=== PATIENT | female | born 1995 | race American Indian/Alaskan Native ===

== ENCOUNTER 2016-12-16 17:57 | Emergency (ER) | payer MEDICAID ==
[2016-12-16 18:28] VITALS: BP 180/98
[2016-12-16] MEDS ORDERED: HYDROmorphone 1 MG/ML Syringe IM ONE (18:34)
--- NOTE | 2016-12-16 18:50 | EDM.PDOC ---
ED HPI GENERAL MEDICAL PROBLEM - General Chief Complaint: Lower Extremity Injury/Pain Stated Complaint: HURT LT FOOT Time Seen by Provider: 12/16/16 18:15 Source of Information: Reports: Patient, RN Notes Reviewed History Limitations: Reports: No Limitations - History of Present Illness INITIAL COMMENTS - FREE TEXT/NARRATIVE: 21-year-old female presents emergency department day complaint of left foot pain , she injured herself last night when she missed a step and twisting her left ankle and fell to the ground she's having difficulty bearing weight does have swelling and bruising appreciated on the left ankle - Related Data Allergies Allergy/AdvReac Type Severity Reaction Status Date / Time No Known Allergies Allergy Verified 06/16/15 19:12 Home Meds: Home Meds metFORMIN [Glucophage] 500 mg PO DAILY 06/16/15 [History] Past Medical History 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 History: Reports: Fracture Endocrine/Metabolic History: Reports: Diabetes, Type II, Obesity/BMI 30+ - Past Surgical History Female Surgical History: Reports: Section 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 Surgical History: Reports: Other (See Below), ORIF Social & Family History - Tobacco Use Smoking Status *Q: Current Every Day Smoker Years of Tobacco use: 2 Packs/Tins Daily: 0.5 Second Hand Smoke Exposure: No - Recreational Drug Use Recreational Drug Use: No Review of Systems - Review of Systems Review Of Systems: See Below GI/Abdominal: Reports: No Symptoms 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: Reports: Joint Pain (Left ankle) Skin: Reports: No Symptoms Neurological: Reports: No Symptoms ED EXAM, GENERAL - Physical Exam Exam: See Below Free Text/Narrative:: Examination of left ankle I do appreciate some edema around the ankle there is some ecchymosis along the lateral aspect around the malleolus pedal pulses 2+ she will not tolerate any movement of the ankle she can bear weight but has difficulty exquisitely tender over the lateral malleolus Exam Limited By: No Limitations General Appearance: Alert, WD/WN, No Apparent Distress Course - Vital Signs Last Recorded V/S: Last Vital Signs Temp 97.2 F 12/16/16 18:25 Pulse 67 12/16/16 18:25 Resp 14 12/16/16 18:25 BP 180/98 H 12/16/16 18:25 Pulse Ox 98 12/16/16 18:25 - Orders/Labs/Meds Orders: Active Orders 24 hr Category Date Time Status Ankle Min 3V Lt [CR] Stat Exams 12/16/16 18:35 Taken DME for Discharge [COMM] Per Unit Routine Oth 12/16/16 19:07 Ordered Meds: Medications Discontinued Medications Generic Name Dose Route Start Last Admin Trade Name Cecilia PRN Reason Stop Dose Admin Hydromorphone HCl 1 mg 12/16/16 18:34 12/16/16 18:54 Dilaudid IM 12/16/16 18:35 1 mg ONETIME ONE Administration Departure - Departure Time of Disposition: 19:10 Disposition: Home, Self-Care 01 Condition: Good Clinical Impression: Left ankle sprain Qualifiers: Encounter type: initial encounter Involved ligament of ankle: other ligament Qualified Code(s): S93.492A - Sprain of other ligament of left ankle, initial encounter - Discharge Information Forms: ED Department Discharge Additional Instructions: Continue to use crutches in the Cam Walker boot until reevaluated by orthopedics , use ibuprofen for baseline pain control and hydrocodone for breakthrough pain - My Orders Last 24 Hours: My Active Orders 12/16/16 18:35 Ankle Min 3V Lt [CR] Stat 12/16/16 19:07 DME for Discharge [COMM] Per Unit Routine - Assessment/Plan Last 24 Hours: My Active Orders 12/16/16 18:35 Ankle Min 3V Lt [CR] Stat 12/16/16 19:07 DME for Discharge [COMM] Per Unit Routine Plan: Assessment Acuity = acute Site and laterality = left ankle sprain Etiology = secondary to twisting injury Manifestations = pain Location of injury = Home Lab values = ankle x-ray I did review films myself I cannot appreciate any acute process, the official read from radiology is pending Plan Counseled her on x-ray films I did not appreciate a fracture we'll contact her if a fracture is appreciated by radiology, she is placed in a cam walker boot and crutches to use ibuprofen for baseline pain control hydrocodone for breakthrough pain she is going to follow-up with her orthopedics in 3-5 days for reevaluation Patient was in agreement with the plan all questions were answered, they were instructed to return to the emergency department or call for worsening symptoms. This note was dictated using [employer] voice recognition software please call with any questions.
--- NOTE | 2016-12-17 10:08 | CR ---
Soft tissue swelling. No fracture.
== END 2016-12-16 19:39 | disposition home or self-care (01) ==
LOC: JP.ED 17:57
DX: S93.492A Sprain of other ligament of left ankle, initial encounter (principal); E11.9 Type 2 diabetes mellitus without complications; F17.210 Nicotine dependence, cigarettes, uncomplicated; E66.9 Obesity, unspecified; Z68.37 Body mass index [BMI] 37.0-37.9, adult; Z79.84 Long term (current) use of oral hypoglycemic drugs; Z98.890 Other specified postprocedural states; W01.0XXA Fall on same level from slipping, tripping and stumbling without subsequent striking against object, initial encounter
CPT/HCPCS: 73610; 96372; 99284; J1170

== ENCOUNTER 2017-05-09 08:19 | Emergency (ER) | payer SELFPAY ==
[2017-05-09 08:33] VITALS: BP 105/51
--- NOTE | 2017-05-09 08:51 | EDM.PDOC ---
ED HPI GENERAL MEDICAL PROBLEM - General Chief Complaint: ENT Problem Stated Complaint: TOOTHACHE Time Seen by Provider: 05/09/17 08:40 Source of Information: Reports: Patient, Police, RN History Limitations: Reports: No Limitations - History of Present Illness INITIAL COMMENTS - FREE TEXT/NARRATIVE: 21 yo female with 3 days of dental pain not relieved with ibuprofen. No facial swelling or fever. Has not contacted her primary. Has no dentist. Plans on going to the walk in clinic tomorrow at [facility]. Onset Date: 05/06/17 Duration: Day(s):, Constant Location: Reports: Face Quality: Reports: Ache Severity: Moderate Improves with: Reports: None Worsens with: Reports: Other (? 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 Tooth/Teeth Pain Score (Numeric/FACES): 9 - Related Data Allergies Allergy/AdvReac Type Severity Reaction Status Date / Time No Known Allergies Allergy Verified 05/09/17 08:33 Home Meds: Home Meds metFORMIN [Glucophage] 500 mg PO DAILY 06/16/15 [History] Hydrocodone/Acetaminophen [[place] 5-325] 1 - 2 tab PO Q6H PRN #10 tablet [Rx] Penicillin V Potassium [IJP: Penicillin V Potassium] 500 mg PO .EVERY 8 HOURS # 30 tab 05/09/17 [Rx] Past Medical History HEENT History: Reports: 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: 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 History: Reports: Fracture Endocrine/Metabolic History: Reports: Diabetes, Type II, Obesity/BMI 30+ - Past Surgical History Female Surgical History: Reports: Section 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 Surgical History: Reports: ORIF Social & Family History - Tobacco Use Smoking Status *Q: Current Some Day Smoker Years of Tobacco use: 3 Packs/Tins Daily: 0.2 Used Tobacco, but Quit: No Second Hand Smoke Exposure: Yes - Caffeine Use Caffeine Use: Reports: Coffee, Soda - Alcohol Use Days Per Week of Alcohol Use: 0 - Recreational Drug Use Recreational Drug Use: No ED ROS ENT - Review of Systems Review Of Systems: See Below Constitutional: Reports: No Symptoms HEENT: Reports: Dental Pain Respiratory: Reports: No Symptoms Cardiovascular: Reports: No Symptoms 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: Reports: No Symptoms Skin: Reports: No Symptoms Neurological: Reports: No Symptoms ED EXAM, ENT - Physical Exam Exam: See Below Exam Limited By: No Limitations General Appearance: Alert, WD/WN, No Apparent Distress Eye Exam: Bilateral Eye: Normal Inspection Ears: Normal External Exam, Normal Canal, Hearing Grossly Normal Nose: Normal Inspection, Normal Mucousa, No Blood Mouth/Throat: Normal Lips, Normal Oropharynx, Dental Tenderness (deep cavity L upper premolar, tender with percussion.) Head: Atraumatic, Normocephalic. No: Facial Swelling Neck: Normal Inspection, Supple Skin: Warm, Dry, Intact, Normal Color, No Rash Lymphatic: No Adenopathy Course - Vital Signs Last Recorded V/S: Last Vital Signs Temp 35.6 C 05/09/17 08:38 Pulse 72 05/09/17 08:38 Resp 18 05/09/17 08:38 BP 105/51 L 05/09/17 08:38 Pulse Ox 99 05/09/17 08:38 Departure - Departure Time of Disposition: 08:50 Disposition: Home, Self-Care 01 Condition: Good Clinical Impression: Dental caries extending into dentin - Discharge Information Prescriptions: Hydrocodone/Acetaminophen [[place] 5-325] 1 - 2 tab PO Q6H PRN #10 tablet PRN Reason: Pain Penicillin V Potassium [IJP: Penicillin V Potassium] 500 mg PO .EVERY 8 HOURS # 30 tab Referrals: PCP,None [Primary Care Provider] - Forms: ED Department Discharge Additional Instructions: Use prescriptions as directed. Continue your ibuprofen 800 mg every 8 hrs with food. See a dentist rio, if you can't get in right away, then see your family doctor.
== END 2017-05-09 08:57 | disposition home or self-care (01) ==
LOC: JP.ED 08:19
DX: K02.9 Dental caries, unspecified (principal); E11.9 Type 2 diabetes mellitus without complications; E66.9 Obesity, unspecified; Z79.84 Long term (current) use of oral hypoglycemic drugs
CPT/HCPCS: 99283

== ENCOUNTER 2019-03-16 08:00 | Day surgery (SDC) | payer MEDICAID ==
[2019-03-16] MEDS ORDERED: Acetaminophen 500 MG Tab PO ONE (08:03)
[2019-03-16] MEDS ORDERED: Bupivacaine 0.5%/EPINEPHrine 1:200,000 50 ML MDV ONE (08:15)
[2019-03-16] MEDS: Dextrose 5%-Lactated Ringers 1,000 ML IV SCH ×2 (09:13→13:09)
[2019-03-16] MEDS ORDERED: cefOXitin 2 GM in Sodium Chloride 0.9% 50 ML IV ONE (10:00)
[2019-03-16] MEDS ORDERED: fentaNYL 250 MCG/5 ML SDV ONE ×2 (10:02→10:03)
[2019-03-16] MEDS ORDERED: Succinylcholine 200 MG/10 ML MDV ONE (10:03)
[2019-03-16] MEDS ORDERED: Glycopyrrolate 0.2 MG/ML 5 ML MDV ONE (10:03)
[2019-03-16] MEDS ORDERED: Ondansetron 4 MG/2 ML SDV ONE (10:03)
[2019-03-16] MEDS ORDERED: Propofol 200 MG/20 ML SDV ONE (10:03)
[2019-03-16] MEDS ORDERED: Neostigmine Methylsulfate 1 MG/ML 5 ML Syringe ONE (10:03)
[2019-03-16] MEDS ORDERED: Dexamethasone 4 MG/ML SDV ONE (10:03)
[2019-03-16] MEDS ORDERED: Rocuronium 50 MG/5 ML Vial ONE (10:03)
[2019-03-16] MEDS ORDERED: Ketamine 500 MG/5 ML MDV IV SCH (10:30)
[2019-03-16] MEDS ORDERED: hydrOXYzine HCl 100 MG/2 ML SDV IM ONE (10:50)
[2019-03-16] MEDS ORDERED: fentaNYL 100 MCG/2 ML SDV ONE (10:51)
[2019-03-16] MEDS: fentaNYL 100 MCG/2 ML SDV IVPUSH ONE ×2 (10:52→13:12)
[2019-03-16] MEDS ORDERED: Insulin Lispro 100 Unit/ML 3 ML KwikPen SUBCUT ONE (11:30)
[2019-03-16] MEDS ORDERED: Ondansetron 4 MG/2 ML SDV IVPUSH PRN (12:37)
[2019-03-16] MEDS ORDERED: HYDROmorphone 1 MG/ML Syringe IV PRN (12:37)
[2019-03-16] MEDS ORDERED: HYDROmorphone 0.5 MG/0.5 ML Syringe IVPUSH PRN (12:37)
[2019-03-16] MEDS ORDERED: 50% Dextrose in Water 50 ML Syringe IVPUSH PRN (12:41)
[2019-03-16] MEDS ORDERED: Glucagon,Human Recombinant 1 MG Vial IM PRN (12:41)
[2019-03-16] MEDS ORDERED: Glucose Gel 15 GM in 37.5 GM Tube PO PRN (12:41)
[2019-03-16] MEDS: Gabapentin 300 MG Cap PO SCH ×2 (13:14→20:12)
[2019-03-16] MEDS: Magnesium Sulfate/Water 2 GM in Premix Bag 1 BAG IV SCH ×2 (13:16→20:10)
[2019-03-16] MEDS ORDERED: Lactated Ringers 1,000 ML IV SCH (14:00)
[2019-03-16] MEDS ORDERED: Pantoprazole 40 MG Vial IVPUSH SCH (14:00)
[2019-03-16] MEDS: cefOXitin 2 GM in Sodium Chloride 0.9% 50 ML IV SCH ×2 (16:45→22:06)
[2019-03-16] MEDS: metFORMIN 500 MG Tab PO SCH (17:24)
[2019-03-16] MEDS: Acetaminophen/HYDROcodone 325-5 MG Tab PO PRN (20:08)
[2019-03-16] MEDS: Insulin Glargine,Human Rec. Analog 100 Units/ML 3 ML Pen SUBCUT SCH (22:02)
[2019-03-16] MEDS: Insulin Lispro 100 Unit/ML 3 ML KwikPen SUBCUT PRN (22:03)
[2019-03-17] MEDS: Acetaminophen/HYDROcodone 325-5 MG Tab PO PRN ×2 (00:13→04:06)
[2019-03-17] MEDS: Magnesium Sulfate/Water 2 GM in Premix Bag 1 BAG IV SCH ×2 (01:18→08:03)
[2019-03-17] MEDS: cefOXitin 2 GM in Sodium Chloride 0.9% 50 ML IV SCH (04:06)
[2019-03-17 07:04] VITALS: BP 151/80; PULSE 93
[2019-03-17] MEDS ORDERED: glipiZIDE 5 MG Tab PO SCH (07:30)
[2019-03-17] MEDS ORDERED: Acetaminophen/HYDROcodone 325-5 MG Tab PO PRN (07:35)
[2019-03-17] MEDS: metFORMIN 500 MG Tab PO SCH (07:51)
[2019-03-17] MEDS: Gabapentin 300 MG Cap PO SCH (08:03)
[2019-03-17] MEDS: Insulin Glargine,Human Rec. Analog 100 Units/ML 3 ML Pen SUBCUT SCH (08:05)
[2019-03-17] MEDS: Insulin Lispro 100 Unit/ML 3 ML KwikPen SUBCUT PRN (08:06)
[2019-03-17] MEDS ORDERED: FLU Vacc QS2019-20(6MOS+)/PF 60 MCG/0.5 ML SYRINGE IM ONE (09:00)
--- NOTE | 2019-03-19 09:56 | DISCH ---
FINAL DIAGNOSES: 1. Chronic cholecystitis and cholelithiasis. 2. Marked hepatomegaly with grossly infiltrated fatty liver. 3. Atypical pigmented lesion of the right lower quadrant abdominal wall. 4. Morbid obesity. 5. Poorly-controlled type 2 diabetes mellitus. OPERATIVE PROCEDURES: 1. Done on 03/16/2019, diagnostic laparoscopy with: a. Cholecystectomy. b. Liver biopsy. c. Excision of medina hepatis lymph node. 2. Excision of pigmented skin lesion, right lower quadrant abdominal wall. SUMMARY: This is a 23-year-old, presenting with symptomatic cholelithiasis. On preoperative ultrasound, she was found to have a significantly fatty infiltrated liver and to have quite poorly controlled type 2 diabetes mellitus. Over the weekend, we did make some adjustments in terms of her diabetic medications, adding some Lantus and blood sugar preoperatively was down to 188 where it had been in the 400 range late last week. The patient underwent a laparoscopic cholecystectomy along with liver biopsy. Liver was grossly quite large and fatty infiltrated. She had a large [place] hepatis lymph node, which was also removed. She was noted to have a pigmented lesion in the right lower quadrant abdominal wall which was excised to rule out this being a melanoma. Pathology on that is pending. Postoperatively, the patient has done well. She will be discharged home on her usual medications plus [place] 5/325 one to two tablets q.6h. p.r.n. pain, #40. We will have Delphine Mishra see the patient regarding diabetic education and she is going to follow up with Alisa Jacob in [facility] next 03/23/2019. We will also schedule her for a bariatric surgery consult on 04/09/2019, as this is a case that will almost certainly do much better by either gastric bypass or duodenal switch, which would control her diabetes and prevent severe long-term complications in relatively early age. It is of note her BMI preoperatively was 41.9.
--- NOTE | 2019-03-27 11:05 | OR ---
DATE OF PROCEDURE: 03/16/2019 SURGEON: Jake Nunez MD PREOPERATIVE DIAGNOSIS: Chronic cholecystitis and cholelithiasis. POSTOPERATIVE DIAGNOSES: 1. Chronic cholecystitis and cholelithiasis. 2. Marked hepatomegaly. 3. Enlarged medina hepatis lymph node. 4. Atypical pigmented skin lesion, right lower quadrant abdominal wall. OPERATIVE PROCEDURES: 1. Diagnostic laparoscopy with: a. Cholecystectomy (88890). b. Theo-Cut needle liver biopsy (58187). c. Excision of medina hepatis lymph node ([id number]). 2. Excision of pigmented skin lesion, right lower quadrant abdominal wall with layered closure (02093, [id number]). ANESTHESIA: General. LIBRARY ASSISTANT: Alisa Jacob PA-C. INDICATION FOR PROCEDURE: A 23-year-old female presenting with episodes of recurrent biliary colic. Workup revealed cholelithiasis and the clinical presentation consistent with recurrent biliary colic. Plan was to proceed with a laparoscopic cholecystectomy. She was also noted to have a quite fatty infiltrated liver, patient being morbidly obese and type 2 diabetic, so we would expect them to likely obtain a liver biopsy as well. Potential risks of the procedure including bleeding, infection, injury to underlying viscera, problems with stones migrating into common bile duct, as well as the possibility of incomplete relief of symptoms were gone over, and the patient wishes to proceed. DETAILS OF PROCEDURE: The patient was taken to the operating room and placed in a supine position. After general endotracheal anesthesia was induced, the abdomen was prepped and draped. Transverse epigastric incision was made and carried down through the skin and subcutaneous tissue and the peritoneal cavity entered under direct vision with an Optiview trocar, inflated to 15 mmHg pressure with CO2. Laparoscope was reinserted. No underlying trocar insertion site injuries were seen. Following this, a 12 mm subumbilical trocar was placed along with 5 mm right abdominal trocar and the upper abdomen examined. As expected, the patient had a thick-walled and somewhat edematous-appearing gallbladder and there were some omental adhesions with it. In addition to this, the patient had a quite marked hepatomegaly with liver grossly fatty infiltrated consistent with her obesity and type 2 diabetes mellitus. As one dissected, there was also roughly a pea-sized medina hepatis lymph node which stood out somewhat as being abnormal. Initially, this was excised using Harmonic scalpel and following which, the Theo-Cut needle liver biopsy was obtained from right lobe of liver. Minimal bleeding from the biopsy sites was controlled with electrocautery. The gallbladder was retracted anteriorly and laterally after the omental adhesions had been taken down. Dissection continued then around the gallbladder neck and cystic duct junction. Once that area was well delineated, 3 clips were placed proximally and 1 distally, and the gallbladder neck and cystic duct junction divided. The cystic area at the same time had been identified and also clipped 3 times proximally and then divided with Harmonic scalpel. The gallbladder was then dissected off the gallbladder bed using Harmonic scalpel and was delivered through the epigastric trocar site. It contained 1 stone roughly the size of a pea and then multiple tinier stones as well. The area of dissection was then inspected. No bleeding or bile leaks were seen and it was felt that a drain was not necessary. The trocars were removed and peritoneal cavity deflated, and the fascia at 12 mm site was closed with 0 Vicryl stitch, and the skin with 4- 0 Vicryl skin stitch. The patient was also noted to have a quite dark pigmented lesion in the skin of the right lower quadrant anterior abdominal wall. This was somewhat suspicious for a melanoma given its appearance. Given this, a transverse elliptical incision was made around the lesion with lesion margin length being 1.2 cm and this was then closed with some 4-0 Vicryl stitch deep and some 4-0 Vicryl skin stitch as well. The incision length was 1.8 cm. Dressing was applied. The patient was taken to the recovery room in satisfactory condition. Physician embalmer assistant, Alisa Jacob, played an essential role in assisting in this case, helping to position the patient, retract structures as needed, as well as suturing and cutting sutures when indicated. Her presence improved patient safety and decreased the operative time. Jake Nunez MD /[id number]
== END 2019-03-17 09:45 | disposition home or self-care (01) ==
LOC: JP.MS 08:00 → JP.SDS 08:00
PROVIDERS: ATTEND Surgery
DX: K80.10 Calculus of gallbladder with chronic cholecystitis without obstruction (principal); Q82.5 Congenital non-neoplastic nevus; R16.0 Hepatomegaly, not elsewhere classified; K75.81 Nonalcoholic steatohepatitis (NASH); K74.0 Hepatic fibrosis; D36.0 Benign neoplasm of lymph nodes; E66.01 Morbid (severe) obesity due to excess calories; E11.65 Type 2 diabetes mellitus with hyperglycemia; E11.40 Type 2 diabetes mellitus with diabetic neuropathy, unspecified; F17.210 Nicotine dependence, cigarettes, uncomplicated; Z68.41 Body mass index [BMI] 40.0-44.9, adult; Z88.6 Allergy status to analgesic agent
CPT/HCPCS: 11406; 12032; 36415; 47001; 47562; 49321; 80053; 81025; 82247; 82962; 84075; 85025; 88304; 88305; 88307; 88313; 90471; 90686; A9270; C9113; J0171; J0330; J0694; J1100; J1170; J1815; J2405; J2704; J2710; J2795; J3010; J3410; J3475; J3490; J7042; J7050; J7120; G0008

== ENCOUNTER 2019-04-12 16:01 | Emergency (ER) | payer MEDICAID ==
[2019-04-12 16:19] VITALS: BP 141/67; PULSE 90
[2019-04-12] MEDS ORDERED: Cephalexin 250 MG Cap PO ONE (16:59)
[2019-04-12] MEDS ORDERED: Acetaminophen/HYDROcodone 325-5 MG Tab PO ONE (17:00)
--- NOTE | 2019-04-12 17:06 | EDM.PDOC ---
ED HPI GENERAL MEDICAL PROBLEM - General Chief Complaint: Skin Complaint Stated Complaint: BOIL INFECTION Time Seen by Provider: 04/12/19 17:00 Source of Information: Reports: Patient, Old Records, RN History Limitations: Reports: No Limitations - History of Present Illness INITIAL COMMENTS - FREE TEXT/NARRATIVE: 23 yo female presents with pain and redness to the R lateral hip. Sx's getting worse over about 4 days. Low grade temp today to just over 100F. Onset: Gradual Onset Date: 04/08/19 Duration: Day(s): (4), Getting Worse Location: Reports: Pelvis (R lateral) Quality: Reports: Ache Severity: Moderate Improves with: Reports: None Worsens with: Reports: Other (time) Context: Reports: Other (has had boils before) Associated Symptoms: Reports: Fever/Chills (low grade) Treatments CAB STARTER: Reports: Acetaminophen Right Buttock Pain Score (Numeric/FACES): 10 - Related Data Allergies Allergy/AdvReac Type Severity Reaction Status Date / Time aspirin Allergy Hives Verified 03/13/19 11:28 Home Meds: Home Meds metFORMIN [Glucophage] 500 mg PO BIDMEALS 06/16/15 [History] Gabapentin [Neurontin] 600 mg PO TID 03/13/19 [History] Insulin Glarg,Human.Rec.Analog [Lantus Solostar] 10 unit SQ BID 03/13/19 [ History] glipiZIDE [Glucotrol XL] 10 mg PO ACBREAKFAST 03/13/19 [History] Past Medical History HEENT History: Reports: Impaired Vision Other HEENT History: wears glasses Gastrointestinal History: Reports: GERD Genitourinary History: Reports: None 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: 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 History: Reports: Fracture Endocrine/Metabolic History: Reports: Diabetes, Type II, Obesity/BMI 30+ - Past Surgical History HEENT Surgical History: Reports: None GI Surgical History: Reports: None Female Surgical History: Reports: Section Endocrine Surgical History: Reports: None 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 Surgical History: Reports: ORIF Dermatological Surgical History: Reports: None Social & Family History - Family History Endocrine/Metabolic: Reports: Diabetes, type II - Tobacco Use Smoking Status *Q: Current Every Day Smoker Years of Tobacco use: 6 Packs/Tins Daily: 0.5 - Caffeine Use Caffeine Use: Reports: Coffee, Soda, Tea - Recreational Drug Use Recreational Drug Use: No ED ROS GENERAL - Review of Systems Review Of Systems: Comprehensive ROS is negative, except as noted in HPI. Constitutional: Reports: Fever (100F) HEENT: Reports: No Symptoms Skin: Reports: Erythema (R lateral hip area, getting worse.) Neurological: Reports: No Symptoms ED EXAM, SKIN/RASH Exam: See Below Exam Limited By: No Limitations General Appearance: Alert, WD/WN, No Apparent Distress, Obese Skin: Warm, Dry, Intact, No Rash, Erythema (in an area about 10 cm in diameter with central firmness like an early abcsess. ), Increased Warmth Location, Skin: Other (R lateral hip) Characteristics: Erythematous Associated features: Warmth, Tenderness Course - Vital Signs Last Recorded V/S: Last Vital Signs Temp 36.6 C 04/12/19 16:24 Pulse 90 04/12/19 16:24 Resp 20 04/12/19 16:24 BP 141/67 H 04/12/19 16:24 Pulse Ox 95 04/12/19 16:24 - Orders/Labs/Meds Orders: Active Orders 24 hr Category Date Time Status Acetaminophen/HYDROcodone [[place] 325-5 MG] Med 04/12/19 17:00 Once 1 tab PO ONETIME ONE cephALEXin [Keflex] Med 04/12/19 16:59 Once 1,000 mg PO ONETIME ONE Departure - Departure Time of Disposition: 17:10 Disposition: Home, Self-Care 01 Condition: Fair Clinical Impression: Cellulitis of right hip - Discharge Information *PRESCRIPTION DRUG MONITORING PROGRAM REVIEWED*: No *COPY OF PRESCRIPTION DRUG MONITORING REPORT IN PATIENT CECILIA: No Instructions: Cellulitis, Adult, [id number] Referrals: Lorena Hartley MD [Primary Care Provider] - Additional Instructions: Continue warm compresses several times daily to affected area. Take cephalexin and tmp/smz as directed. Recheck tomorrow in the clinic. Use norco as needed for pain relief. - My Orders Last 24 Hours: My Active Orders 04/12/19 16:59 cephALEXin [Keflex] 1,000 mg PO ONETIME ONE 04/12/19 17:00 Acetaminophen/HYDROcodone [[place] 325-5 MG] 1 tab PO ONETIME ONE - Assessment/Plan Last 24 Hours: My Active Orders 04/12/19 16:59 cephALEXin [Keflex] 1,000 mg PO ONETIME ONE 04/12/19 17:00 Acetaminophen/HYDROcodone [[place] 325-5 MG] 1 tab PO ONETIME ONE
== END 2019-04-12 17:16 | disposition home or self-care (01) ==
LOC: JP.ED 16:01
DX: L03.115 Cellulitis of right lower limb (principal); E11.9 Type 2 diabetes mellitus without complications; E66.9 Obesity, unspecified; F17.210 Nicotine dependence, cigarettes, uncomplicated; Z88.6 Allergy status to analgesic agent; Z68.41 Body mass index [BMI] 40.0-44.9, adult; Z79.4 Long term (current) use of insulin
CPT/HCPCS: 99283; A9270

== ENCOUNTER 2019-11-16 18:12 | Emergency (ER) | payer MEDICAID ==
--- NOTE | 2019-11-16 18:40 | EDM.PDOC ---
ED HPI GENERAL MEDICAL PROBLEM - General Chief Complaint: Drug or Alcohol Abuse Stated Complaint: [facility] Time Seen by Provider: 11/16/19 18:12 Source of Information: Reports: Patient, EMS History Limitations: Reports: Altered Mental Status, Intoxication - History of Present Illness INITIAL COMMENTS - FREE TEXT/NARRATIVE: 24-year-old female, who overdosed on muscle relaxers and alcohol. Ambulance was called and on arrival she said she took "10" muscle relaxers and a pint of bo. She was communicating fairly easily but has become more lethargic in route. She still able to answer questions but needs physical stimulation to open her eyes and answer, she assisted somewhat when we sat her up to remove her clothing. No nausea. She denies she intended self- harm. EMS checked her glucose and it was over 400, patient admits she did not take her insulin today. Onset: Unknown/Unsure (According to EMS the ingestion was roughly 2 hours ago) Associated Symptoms: Reports: Confusion, Weakness. Denies: Cough, Fever/Chills, Nausea/Vomiting, Shortness of Breath - Related Data Allergies Allergy/AdvReac Type Severity Reaction Status Date / Time aspirin Allergy Hives Verified 03/13/19 11:28 Home Meds: Home Meds metFORMIN [Glucophage] 1,000 mg PO BIDMEALS 06/16/15 [History] Gabapentin [Neurontin] 600 mg PO TID 03/13/19 [History] Insulin Glarg,Human.Rec.Analog [Lantus Solostar] 10 unit SQ BID 03/13/19 [History] glipiZIDE [Glucotrol XL] 10 mg PO ACBREAKFAST 03/13/19 [History] Acetaminophen/HYDROcodone [[place] 325-5 MG] 1 - 2 tab PO Q6H PRN #14 tab 04/12/19 [Rx] Acetaminophen/HYDROcodone [[place] 325-5 MG] 1 - 2 tab PO Q6H PRN #14 tab 04/12/19 [Rx] Hydrocodone/Acetaminophen [[place] 5-325 Tablet] 1 - 2 each PO QID PRN #14 tablet 04/12/19 [Rx] Sulfamethoxazole/Trimethoprim [Bactrim Ds Tablet] 1 each PO Q12H #14 tablet [Rx] tiZANidine [Zanaflex] 4 mg PO ASDIRECTED PRN MDD t 11/16/19 [History] Past Medical History HEENT History: Reports: Impaired Vision Other HEENT History: wears glasses Gastrointestinal History: Reports: GERD Genitourinary History: Reports: None 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: 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 History: Reports: Fracture Endocrine/Metabolic History: Reports: Diabetes, Type II, Obesity/BMI 30+ - Past Surgical History HEENT Surgical History: Reports: None GI Surgical History: Reports: None Female Surgical History: Reports: Section Endocrine Surgical History: Reports: None 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 Surgical History: Reports: ORIF Dermatological Surgical History: Reports: None Social & Family History - Family History Endocrine/Metabolic: Reports: Diabetes, type II - Caffeine Use Caffeine Use: Reports: Coffee, Soda, Tea ED ROS GENERAL - Review of Systems Review Of Systems: See Below Reason Not Obtained: Very difficult to obtain because of mental status Constitutional: Reports: Malaise Respiratory: Denies: Shortness of Breath GI/Abdominal: Denies: Nausea, Vomiting Free Text/Narrative/Comment: She knows her dose of insulin, she said she took it yesterday but not today. - Physical Exam Exam: See Below Exam Limited By: Intoxication General Appearance: Lethargic (But arousable) Eye Exam: Bilateral Eye: Other (Pupils are small and reactive, she has a disconjugate gaze initially) Head Exam: Atraumatic Neck: Supple Respiratory/Chest: Lungs Clear Cardiovascular: Regular Rate, Rhythm GI/Abdominal: Soft, Non-Tender, Other (Numerous pigmented macules on the lower abdomen likely from insulin injections) Neuro Exam (Abbreviated): Inattentive, Slow to Respond Extremities: No: Pedal Edema Skin Exam: Warm, Dry Course - Vital Signs Last Recorded V/S: Last Vital Signs Temp 97.8 F 11/16/19 18:42 Pulse 65 11/16/19 21:38 Resp 20 11/16/19 21:38 BP 103/47 L 11/16/19 21:38 Pulse Ox 98 11/16/19 21:38 - Orders/Labs/Meds Orders: Active Orders 24 hr Category Date Time Status Insert Klein Catheter [Insert Urinary Catheter] [OM.PC] Care 11/16/19 19:00 Ordered Q24H Urinary Catheter Assessment [RC] ASDIRECTED Care 11/16/19 18:56 Active Labs: Laboratory Tests 06/11/16/19 11/16/19 Range/Units 18:30 18:30 18:30 WBC 10.8 (4.5-11.0) K/uL RBC 4.64 (3.30-5.50) M/uL Hgb 13.3 (12.0-15.0) g/dL Hct 41.1 (36.0-48.0) % MCV 89 (80-98) fL MCH 29 (27-31) pg MCHC 32 (32-36) % Plt Count 275 (150-400) K/uL Neut % (Auto) 72 H (36-66) % Lymph % (Auto) 22 L (24-44) % [place] % (Auto) 5 (2-6) % Eos % (Auto) 0 L (2-4) % Baso % (Auto) 0 (0-1) % Sodium 137 L (140-148) mmol/L Potassium 4.0 (3.6-5.2) mmol/L Chloride 100 (100-108) mmol/L Carbon Dioxide 20 L (21-32) mmol/L Anion Gap 21.0 H (5.0-14.0) mmol/L BUN 9 (7-18) mg/dL Creatinine 0.9 (0.6-1.0) mg/dL Est Cr Clr Drug Dosing 93.73 mL/min Estimated GFR (MDRD) > 60 (>60) Glucose 466 H* (74-106) mg/dL Calcium 8.2 L (8.5-10.1) mg/dL Total Bilirubin 0.6 D (0.2-1.0) mg/dL AST 413 H D (15-37) U/L ALT 271 H (12-78) U/L Alkaline Phosphatase 43 L (46-116) U/L Total Protein 7.3 (6.4-8.2) g/dL Albumin 3.7 (3.4-5.0) g/dL Globulin 3.6 H (2.3-3.5) g/dL Albumin/Globulin Ratio 1.0 L (1.2-2.2) Urine Color Yellow (YELLOW) Urine Appearance Clear (CLEAR) Urine pH 6.5 (5.0-8.0) Ur Specific [place] 1.015 (1.008-1.030) Urine Protein Trace H (NEGATIVE) mg/dL Urine Glucose (UA) 500 H (NEGATIVE) mg/dL Urine Ketones Trace H (NEGATIVE) mg/dL Urine Occult Blood Trace-intact H (NEGATIVE) Urine Nitrite Negative (NEGATIVE) Urine Bilirubin Negative (NEGATIVE) Urine Urobilinogen 0.2 (0.2-1.0) EU/dL Ur Leukocyte Esterase Negative (NEGATIVE) Urine RBC 0-5 (0-5) Urine WBC 0-5 (0-5) Ur Epithelial Cells Rare Amorphous Sediment Not seen Urine Bacteria Rare Urine Mucus Not seen Urine Opiates Screen (NEGATIVE) Ur Oxycodone Screen (NEGATIVE) Urine Methadone Screen (NEGATIVE) Ur Propoxyphene Screen (NEGATIVE) Ur Barbiturates Screen (NEGATIVE) Ur Tricyclics Screen (NEGATIVE) Ur Phencyclidine Scrn (NEGATIVE) Ur Amphetamine Screen (NEGATIVE) U Methamphetamines Scrn (NEGATIVE) Urine MDMA Screen (NEGATIVE) U Benzodiazepines Scrn (NEGATIVE) U Cocaine Metab Screen (NEGATIVE) U Marijuana (THC) Screen (NEGATIVE) Ethyl Alcohol mg/dL 11/16/19 11/16/19 Range/Units 18:30 18:30 WBC (4.5-11.0) K/uL RBC (3.30-5.50) M/uL Hgb (12.0-15.0) g/dL Hct (36.0-48.0) % MCV (80-98) fL MCH (27-31) pg MCHC (32-36) % Plt Count (150-400) K/uL Neut % (Auto) (36-66) % Lymph % (Auto) (24-44) % [place] % (Auto) (2-6) % Eos % (Auto) (2-4) % Baso % (Auto) (0-1) % Sodium (140-148) mmol/L Potassium (3.6-5.2) mmol/L Chloride (100-108) mmol/L Carbon Dioxide (21-32) mmol/L Anion Gap (5.0-14.0) mmol/L BUN (7-18) mg/dL Creatinine (0.6-1.0) mg/dL Est Cr Clr Drug Dosing mL/min Estimated GFR (MDRD) (>60) Glucose (74-106) mg/dL Calcium (8.5-10.1) mg/dL Total Bilirubin (0.2-1.0) mg/dL AST (15-37) U/L ALT (12-78) U/L Alkaline Phosphatase (46-116) U/L Total Protein (6.4-8.2) g/dL Albumin (3.4-5.0) g/dL Globulin (2.3-3.5) g/dL Albumin/Globulin Ratio (1.2-2.2) Urine Color (YELLOW) Urine Appearance (CLEAR) Urine pH (5.0-8.0) Ur Specific [place] (1.008-1.030) Urine Protein (NEGATIVE) mg/dL Urine Glucose (UA) (NEGATIVE) mg/dL Urine Ketones (NEGATIVE) mg/dL Urine Occult Blood (NEGATIVE) Urine Nitrite (NEGATIVE) Urine Bilirubin (NEGATIVE) Urine Urobilinogen (0.2-1.0) EU/dL Ur Leukocyte Esterase (NEGATIVE) Urine RBC (0-5) Urine WBC (0-5) Ur Epithelial Cells Amorphous Sediment Urine Bacteria Urine Mucus Urine Opiates Screen Negative (NEGATIVE) Ur Oxycodone Screen Negative (NEGATIVE) Urine Methadone Screen Negative (NEGATIVE) Ur Propoxyphene Screen Negative (NEGATIVE) Ur Barbiturates Screen Negative (NEGATIVE) Ur Tricyclics Screen Negative (NEGATIVE) Ur Phencyclidine Scrn Negative (NEGATIVE) Ur Amphetamine Screen Negative (NEGATIVE) U Methamphetamines Scrn Presumptive positive H (NEGATIVE) Urine MDMA Screen Negative (NEGATIVE) U Benzodiazepines Scrn Negative (NEGATIVE) U Cocaine Metab Screen Negative (NEGATIVE) U Marijuana (THC) Screen Negative (NEGATIVE) Ethyl Alcohol 152 mg/dL Meds: Medications Discontinued Medications Generic Name Dose Route Start Last Admin Trade Name Freq PRN Reason Stop Dose Admin Insulin Glargine 15 units 11/16/19 22:02 11/16/19 22:22 Lantus Solostar SUBCUT 15 units DAILY JORGE L Administration Insulin Human Regular 10 unit 11/16/19 19:06 11/16/19 19:16 Humulin R IVPUSH 11/16/19 19:07 10 units ONETIME ONE Administration - Re-Assessments/Exams Free Text/Narrative Re-Assessment/Exam: 11/16/19 18:50 Klein catheter was placed, urine obtained for a UA and urine drug screen. CBC CMP and EtOH were also drawn. She likely will need admission for observation for possible self-harm as well as significant mental status depression due to muscle relaxer overdose and hyperglycemia. 11/16/19 21:49 Over the course of 2 hours in the emergency room, the patient's mental status improved fairly rapidly. He was given 10 units of regular insulin when her first glucose came back at 466. After she became oriented she admitted she did try to hurt herself but she was remorseful, and did not want to be placed on a hold and promised she would not hurt her self again because she wanted to attend services for her boyfriend and to take care of her two children. I discussed this with her family, they agreed to come and get her and watch her for the next several days. She was given additional 15 units of long-acting insulin subcutaneously. Urine was also positive for methamphetamine which she admitted to use yesterday morning. Recheck [id number] glucose prior to the long- acting insulin was 366 Departure - Departure Time of Disposition: 00:17 Disposition: Home, Self-Care 01 Clinical Impression: Alcohol intoxication Qualifiers: Complication of substance-induced condition: uncomplicated Qualified Code(s): F10.920 - Alcohol use, unspecified with intoxication, uncomplicated Intentional drug overdose Qualifiers: Encounter type: initial encounter Qualified Code(s): T50.902A - Poisoning by unspecified drugs, medicaments and biological substances, intentional self-harm, initial encounter - Discharge Information Instructions: Intentional Drug Overdose Referrals: PCP,None [Primary Care Provider] - Forms: ED Department Discharge Care Plan Goals: Stay with family for the next several days and take your medications only as prescribed. Avoid alcohol and illicit drug use. Return to the emergency room if problems or concerns. Sepsis Event Note (ED) - Focused Exam Vital Signs: Vital Signs Temp Pulse Resp BP Pulse Ox 11/16/19 21:38 65 20 103/47 L 98 11/16/19 20:45 72 99/41 L 100 11/16/19 19:45 77 29 H 95/35 L 96 11/16/19 19:15 81 29 H 114/40 L 95 11/16/19 18:42 97.8 F 80 31 H 120/60 97 11/16/19 18:14 97.8 F 80 31 H 120/60 97 - My Orders Last 24 Hours: My Active Orders 11/16/19 18:56 Urinary Catheter Assessment [RC] ASDIRECTED 11/16/19 19:00 Insert Klein Catheter [Insert Urinary Catheter] [OM.PC] Q24H - Assessment/Plan Last 24 Hours: My Active Orders 11/16/19 18:56 Urinary Catheter Assessment [RC] ASDIRECTED 11/16/19 19:00 Insert Klein Catheter [Insert Urinary Catheter] [OM.PC] Q24H
[2019-11-16] MEDS ORDERED: Insulin Regular, Human 100 Units/ML 3 ML Vial IVPUSH ONE (19:06)
[2019-11-16 21:39] VITALS: BP 103/47; PULSE 65
[2019-11-16] MEDS ORDERED: Insulin Glargine,Human Rec. Analog 100 Units/ML 3 ML Pen SUBCUT SCH (22:02)
[2019-11-17] MEDS ORDERED: Insulin Glargine,Human Rec. Analog 100 Units/ML 3 ML Pen SUBCUT ONE (21:41)
== END 2019-11-17 00:17 | disposition home or self-care (01) ==
LOC: JP.ED 18:12
DX: T48.202A Poisoning by unspecified drugs acting on muscles, intentional self-harm, initial encounter (principal); F10.120 Alcohol abuse with intoxication, uncomplicated; Y90.6 Blood alcohol level of 120-199 mg/100 ml; K21.9 Gastro-esophageal reflux disease without esophagitis; E11.9 Type 2 diabetes mellitus without complications; E66.9 Obesity, unspecified; Z68.33 Body mass index [BMI] 33.0-33.9, adult; Z88.6 Allergy status to analgesic agent; Z79.4 Long term (current) use of insulin; Z79.899 Other long term (current) drug therapy
CPT/HCPCS: 36415; 51702; 80053; 80305; 80307; 81001; 82962; 85025; 99285; J1815

== ENCOUNTER 2020-01-13 19:15 | Emergency (ER) | payer MEDICAID ==
[2020-01-13 19:51] VITALS: BP 139/84; PULSE 92
[2020-01-13] MEDS ORDERED: Lidocaine 1% with EPINEPHrine 1:100,000 50 ML MDV INFILT ONE (20:24)
--- NOTE | 2020-01-13 21:02 | EDM.PDOC ---
ED HPI GENERAL MEDICAL PROBLEM - General Chief Complaint: Skin Complaint Stated Complaint: BOIL LT SIDE,FEVER Time Seen by Provider: 01/13/20 19:42 Source of Information: Reports: Patient History Limitations: Reports: No Limitations - History of Present Illness INITIAL COMMENTS - FREE TEXT/NARRATIVE: 24-year-old female with chronic recurring subcutaneous abscesses and type 2 di abetes, presents with a fairly large worsening cutaneous abscess on the left flank. It started off as a fairly small pimple 2 to 3 days ago, but is progressed fairly rapidly into a large painful swollen area. She feels she has been running fevers. She had an electronic visit yesterday morning, and was started on Bactrim DS. However it is worsening. Onset: Gradual Duration: Day(s): Location: Reports: Back (Left flank) Associated Symptoms: Reports: Fever/Chills left flank Pain Score (Numeric/FACES): 9 - Related Data Allergies Allergy/AdvReac Type Severity Reaction Status Date / Time aspirin Allergy Hives Verified 01/13/20 19:46 Home Meds: Home Meds metFORMIN [Glucophage] 1,000 mg PO BIDMEALS 06/16/15 [History] Gabapentin [Neurontin] 900 mg PO TID 03/13/19 [History] Insulin Glarg,Human.Rec.Analog [Lantus Solostar] 15 unit SQ BID 03/13/19 [History] glipiZIDE [Glucotrol XL] 10 mg PO ACBREAKFAST 03/13/19 [History] Hydrocodone/Acetaminophen [[place] 5-325 Tablet] 1 - 2 each PO QID PRN #14 tablet 04/12/19 [Rx] Sulfamethoxazole/Trimethoprim [Bactrim Ds Tablet] 1 each PO Q12H #14 tablet 04/12/19 [Rx] Past Medical History HEENT History: Reports: Impaired Vision Other HEENT History: wears glasses Gastrointestinal History: Reports: GERD Genitourinary History: Reports: None 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: 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 History: Reports: Fracture Psychiatric History: Reports: Depression Endocrine/Metabolic History: Reports: Diabetes, Type II, Obesity/BMI 30+ Dermatologic History: Reports: Other (See Below) Other Dermatologic History: boils - Past Surgical History HEENT Surgical History: Reports: None GI Surgical History: Reports: None Female Surgical History: Reports: Section Endocrine Surgical History: Reports: None 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 Surgical History: Reports: ORIF Dermatological Surgical History: Reports: None Social & Family History - Family History Endocrine/Metabolic: Reports: Diabetes, type II - Tobacco Use Smoking Status *Q: Current Every Day Smoker Years of Tobacco use: 6 Packs/Tins Daily: 0.5 - Caffeine Use Caffeine Use: Reports: Coffee - Recreational Drug Use Recreational Drug Use: Yes Drug Use in Last 12 Months: Yes Recreational Drug Type: Reports: Marijuana/Hashish ED ROS GENERAL - Review of Systems Review Of Systems: See Below Constitutional: Reports: Fever, Chills, Malaise HEENT: Reports: No Symptoms Respiratory: Denies: Shortness of Breath Cardiovascular: Denies: Chest Pain GI/Abdominal: Denies: Abdominal Pain 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: Reports: Back Pain ED EXAM, SKIN/RASH Exam: See Below Exam Limited By: No Limitations General Appearance: Alert, No Apparent Distress, Other (Patient is uncomfortable but not in acute distress) Respiratory/Chest: No Respiratory Distress, Lungs Clear Cardiovascular: Regular Rate, Rhythm GI/Abdominal: Non-Tender Back Exam: Other (On the left flank area the patient has a large, firm, reddened and swollen subcutaneous abscess. Palpation anywhere around or on the abscesse is very tender.) Course - Vital Signs Last Recorded V/S: Last Vital Signs Temp 97.4 F 01/13/20 19:55 Pulse 92 01/13/20 19:55 Resp 16 01/13/20 19:55 BP 139/84 01/13/20 19:55 Pulse Ox 97 01/13/20 19:55 - Orders/Labs/Meds Orders: Active Orders 24 hr Category Date Time Status CULTURE WOUND + SMEAR [RM] Stat Lab 01/13/20 20:58 Results Meds: Medications Discontinued Medications Generic Name Dose Route Start Last Admin Trade Name Freq PRN Reason Stop Dose Admin Lidocaine/Epinephrine 30 ml 01/13/20 20:24 Xylocaine 1% With Epinephrine 1:100,000 INFILT 01/13/20 20:25 ONETIME ONE - Re-Assessments/Exams Free Text/Narrative Re-Assessment/Exam: 01/13/20 21:07 This patient has a subcutaneous abscess which is worsening while on Bactrim. She was prepared for an I&D. The abscess was sterilized with Betadine, infiltrated with 1% lidocaine with epinephrine, and a #11 scalpel was used to incise the wound. Copious purulent material was expelled, a culture was taken. 20 to 30 cc at least of purulent material was released, the abscess was then flushed with saline. Several inches of half-inch iodoform gauze was then placed into the wound. It was recommended she take a long warm bath tomorrow, and then recheck on Saturday to possibly have some or all the packing removed. She was given 10 additional hydrocodone, and also started on Augmentin pending culture result. Departure - Departure Time of Disposition: 21:13 Disposition: Home, Self-Care 01 Clinical Impression: Cutaneous abscess of back [any part, except buttock] - Discharge Information Instructions: Skin Abscess Referrals: Lorena Hartley MD [Primary Care Provider] - Forms: ED Department Discharge Care Plan Goals: Take a long warm bath tomorrow, and recheck on Saturday to have some packing or all of the packing removed. Take antibiotic as prescribed, ibuprofen or n aproxen will help for pain and add stronger pain medication if needed. Sepsis Event Note (ED) - Evaluation Sepsis Screening Result: No Definite Risk - Focused Exam Vital Signs: Vital Signs Temp Pulse Resp BP Pulse Ox 01/13/20 19:55 97.4 F 92 16 139/84 97 01/13/20 19:48 97.4 F 92 16 139/84 97 - My Orders Last 24 Hours: My Active Orders 01/13/20 20:58 CULTURE WOUND + SMEAR [RM] Stat - Assessment/Plan Last 24 Hours: My Active Orders 01/13/20 20:58 CULTURE WOUND + SMEAR [RM] Stat
== END 2020-01-13 21:25 | disposition home or self-care (01) ==
LOC: JP.ED 19:15
DX: L02.212 Cutaneous abscess of back [any part, except buttock and flank] (principal); E11.9 Type 2 diabetes mellitus without complications; E66.9 Obesity, unspecified; F17.210 Nicotine dependence, cigarettes, uncomplicated; Z79.4 Long term (current) use of insulin; Z68.36 Body mass index [BMI] 36.0-36.9, adult; Z88.6 Allergy status to analgesic agent
CPT/HCPCS: 10060; 87070; 87077; 87186; 87205; 99283-25

== ENCOUNTER 2020-03-09 19:01 | Emergency (ER) | payer MEDICAID ==
[2020-03-09] MEDS ORDERED: MVI, Adult with Vitamin K 10 ML, Thiamine 200 MG, Folic Acid 1 MG, Magnesium Sulfate 2 ... IV ONE ×5 (19:22)
--- NOTE | 2020-03-09 19:26 | EDM.PDOC ---
ED HPI GENERAL MEDICAL PROBLEM - General Chief Complaint: General Stated Complaint: MEDICAL Time Seen by Provider: 03/09/20 19:17 Source of Information: Reports: Patient, EMS, RN Notes Reviewed History Limitations: Reports: No Limitations - History of Present Illness INITIAL COMMENTS - FREE TEXT/NARRATIVE: 24-year-old female presents emergency department today with seizure-like activity, she admits to consuming alcohol all week she does have a history of alcohol abuse and dependence she also admits to using methamphetamine. She states she has not been consuming alcohol most of the day and last 24 hours or so because she just did not feel like it was noted to have seizure-like activity and be unresponsive at home. Family members called EMS services for transfer to the ED for further evaluation. She states she has had seizure like activity when she was about 16 years old during gym class however she did not see neurology and states she has never had any image stenting done. She has no complaints at this time other than feeling tired - Related Data Allergies Allergy/AdvReac Type Severity Reaction Status Date / Time aspirin Allergy Hives Verified 03/09/20 19:09 Home Meds: Home Meds metFORMIN [Glucophage] 1,000 mg PO BIDMEALS 06/16/15 [History] Gabapentin [Neurontin] 900 mg PO TID 03/13/19 [History] Insulin Glarg,Human.Rec.Analog [Lantus Solostar] 15 unit SQ BID 03/13/19 [History] glipiZIDE [Glucotrol XL] 10 mg PO ACBREAKFAST 03/13/19 [History] Past Medical History HEENT History: Reports: Impaired Vision Other HEENT History: wears glasses Gastrointestinal History: Reports: GERD 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 Psychiatric History: Reports: Depression Endocrine/Metabolic History: Reports: Diabetes, Type II, Obesity/BMI 30+ Dermatologic History: Reports: Other (See Below) Other Dermatologic History: boils - Infectious Disease History Infectious Disease History: Reports: MRSA - Past Surgical History Female Surgical History: Reports: Section 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 Surgical History: Reports: ORIF Social & Family History - Family History Endocrine/Metabolic: Reports: Diabetes, type II - Tobacco Use Tobacco Use Status *Q: Light Tobacco User Years of Tobacco use: 7 Packs/Tins Daily: 0.5 - Caffeine Use Caffeine Use: Reports: Coffee, Energy Drinks, Soda - Recreational Drug Use Recreational Drug Use: Yes Recreational Drug Type: Reports: Methamphetamine Recreational Drug Use Frequency: Rarely ED ROS GENERAL - Review of Systems Review Of Systems: See Below Constitutional: Reports: No Symptoms HEENT: Reports: Other (Tip of her tongue hurts) Respiratory: Reports: No Symptoms Cardiovascular: Reports: No Symptoms GI/Abdominal: Reports: No Symptoms : Reports: No Symptoms 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: Reports: No Symptoms Neurological: Reports: Seizure (Seizure-like activity) Psychiatric: Reports: Depression ED EXAM, GENERAL - Physical Exam Exam: See Below Exam Limited By: No Limitations General Appearance: Alert, WD/WN, No Apparent Distress Eye Exam: Bilateral Eye: Normal Inspection, PERRL Throat/Mouth: Normal Inspection, Normal Lips, Normal Teeth, Normal Gums, Normal Oropharynx, Normal Voice, No Airway Compromise Head: Atraumatic, Normocephalic Neck: Normal Inspection, Supple, Non-Tender, Full Range of Motion Respiratory/Chest: No Respiratory Distress, Lungs Clear, Normal Breath Sounds, No Accessory Muscle Use, Chest Non-Tender Cardiovascular: Regular Rate, Rhythm, No Murmur GI/Abdominal: Soft, Non-Tender Extremities: Normal Inspection, No Pedal Edema Psychiatric: Depressed Mood (Denies suicidal ideation) Course - Vital Signs Last Recorded V/S: Last Vital Signs Temp 98.8 F 03/09/20 19:06 Pulse 92 03/09/20 19:06 Resp 21 H 03/09/20 19:06 BP 139/90 03/09/20 19:06 Pulse Ox 99 03/09/20 19:06 - Orders/Labs/Meds Orders: Active Orders 24 hr Category Date Time Status DRUG SCREEN, URINE [URCHEM] Stat Lab 03/09/20 19:23 Ordered HCG QUALITATIVE,URINE [URCHEM] Urgent Lab 03/09/20 19:21 Ordered Labs: Laboratory Tests 03/09/20 03/09/20 03/09/20 Range/Units 19:33 19:33 19:33 WBC 7.7 (4.5-11.0) K/uL RBC 5.04 (3.30-5.50) M/uL Hgb 13.1 (12.0-15.0) g/dL Hct 41.0 (36.0-48.0) % MCV 81 (80-98) fL MCH 26 L (27-31) pg MCHC 32 (32-36) % Plt Count 276 (150-400) K/uL Neut % (Auto) 66 (36-66) % Lymph % (Auto) 25 (24-44) % Phillips % (Auto) 8 H (2-6) % Eos % (Auto) 1 L (2-4) % Baso % (Auto) 1 (0-1) % Sodium 139 L (140-148) mmol/L Potassium 3.2 L (3.6-5.2) mmol/L Chloride 104 (100-108) mmol/L Carbon Dioxide 27 (21-32) mmol/L Anion Gap 11.2 (5.0-14.0) mmol/L BUN 9 (7-18) mg/dL Creatinine 0.9 (0.6-1.0) mg/dL Est Cr Clr Drug Dosing 76.23 mL/min Estimated GFR (MDRD) > 60 (>60) Glucose 185 H (74-106) mg/dL Calcium 8.9 (8.5-10.1) mg/dL Total Bilirubin 0.4 (0.2-1.0) mg/dL AST 30 D (15-37) U/L ALT 44 D (12-78) U/L Alkaline Phosphatase 53 (46-116) U/L Total Protein 7.3 (6.4-8.2) g/dL Albumin 3.3 L (3.4-5.0) g/dL Globulin 4.0 H (2.3-3.5) g/dL Albumin/Globulin Ratio 0.8 L (1.2-2.2) Salicylates 2.3 (2.0-20.0) mg/dL Acetaminophen 0.0 L (10.0-30.0) ug/mL Ethyl Alcohol mg/dL //20 Range/Units 19:33 WBC (4.5-11.0) K/uL RBC (3.30-5.50) M/uL Hgb (12.0-15.0) g/dL Hct (36.0-48.0) % MCV (80-98) fL MCH (27-31) pg MCHC (32-36) % Plt Count (150-400) K/uL Neut % (Auto) (36-66) % Lymph % (Auto) (24-44) % Phillips % (Auto) (2-6) % Eos % (Auto) (2-4) % Baso % (Auto) (0-1) % Sodium (140-148) mmol/L Potassium (3.6-5.2) mmol/L Chloride (100-108) mmol/L Carbon Dioxide (21-32) mmol/L Anion Gap (5.0-14.0) mmol/L BUN (7-18) mg/dL Creatinine (0.6-1.0) mg/dL Est Cr Clr Drug Dosing mL/min Estimated GFR (MDRD) (>60) Glucose (74-106) mg/dL Calcium (8.5-10.1) mg/dL Total Bilirubin (0.2-1.0) mg/dL AST (15-37) U/L ALT (12-78) U/L Alkaline Phosphatase (46-116) U/L Total Protein (6.4-8.2) g/dL Albumin (3.4-5.0) g/dL Globulin (2.3-3.5) g/dL Albumin/Globulin Ratio (1.2-2.2) Salicylates (2.0-20.0) mg/dL Acetaminophen (10.0-30.0) ug/mL Ethyl Alcohol < 3 mg/dL Meds: Medications Discontinued Medications Generic Name Dose Route Start Last Admin Trade Name Freq PRN Reason Stop Dose Admin Multivitamins/Minerals 10 ml/ 1,016.2 mls @ 500 mls/hr 03/09/20 19:22 03/09/20 19:49 Thiamine HCl 200 mg/ Folic IV 03/09/20 21:23 500 mls/hr Acid 1 mg/ Magnesium Sulfate 2 ONETIME ONE Administration gm/ Dextrose/Lactated Ringer' s Lorazepam 0.5 mg 03/09/20 19:44 03/09/20 19:58 Ativan IVPUSH 03/09/20 19:45 0.5 mg ONETIME ONE Administration Departure - Departure Time of Disposition: 21:42 Disposition: Home, Self-Care 01 Condition: Poor Clinical Impression: Seizure-like activity, Alcohol abuse - Discharge Information Instructions: Alcohol Use Disorder Referrals: PCP,None [Ordering Only Provider] - Forms: ED Department Discharge Additional Instructions: Recommend rest, refrain from alcohol please followup with your primary care provider in 3-5 days if not better, please call return to the emergency department with worsening of symptoms. Sepsis Event Note (ED) - Evaluation Sepsis Screening Result: No Definite Risk - Focused Exam Vital Signs: Vital Signs Temp Pulse Resp BP Pulse Ox 03/09/20 19:06 98.8 F 92 21 H 139/90 99 - My Orders Last 24 Hours: My Active Orders 03/09/20 19:21 HCG QUALITATIVE,URINE [URCHEM] Urgent 03/09/20 19:23 DRUG SCREEN, URINE [URCHEM] Stat - Assessment/Plan Last 24 Hours: My Active Orders 03/09/20 19:21 HCG QUALITATIVE,URINE [URCHEM] Urgent 03/09/20 19:23 DRUG SCREEN, URINE [URCHEM] Stat Plan: Assessment Acuity = acute Site and laterality = seizure-like activity Etiology = probably related to alcohol abuse Manifestations = none Location of injury = Home Lab values = CBC unremarkable potassium low 3.2 consistent with hypokalemia alcohol was negative, CT scan of the head shows no acute process Plan She did receive some Ativan while in the ED as well as 1 banana bag, had some improvement no seizure-like activity while in the emergency department recommend refrain from alcohol follow-up primary care 3 to 5 days if no improvement call return to the emergency department worsening of symptoms This note was dictated using [employer] voice recognition software please call with any questions on syntax or grammar.
[2020-03-09] MEDS ORDERED: LORazepam 2 MG/ML SDV IVPUSH ONE (19:44)
--- NOTE | 2020-03-09 20:31 | CRLCT ---
INDICATION: Seizure-like activity TECHNIQUE: CT head without contrast. COMPARISON: None available FINDINGS: The ventricles and sulci are within normal limits. There is no mass effect or midline shift. There is no loss of rivera-white differentiation. There is no evidence of an acute intracranial hemorrhage. No acute calvarial fracture is seen. The visualized paranasal sinuses and mastoid air cells are clear. The visualized orbits are within normal limits. IMPRESSION: No evidence of acute intracranial hemorrhage, mass effect or loss of rivera-white differentiation. Please note that MRI is more sensitive for evaluation of seizures. Dictated by Rachid Stewart MD @ 03/09/2020 8:28:18 PM Please note that all CT scans at this facility use dose modulation, iterative reconstruction, and/or weight-based dosing when appropriate to reduce radiation dose to as low as reasonably achievable. Dictated by: Rachid Stewart MD @ 03/09/2020 20:28:36 (Electronically Signed)
[2020-03-09 21:50] VITALS: BP 144/92; PULSE 88
== END 2020-03-09 23:30 | disposition home or self-care (01) ==
LOC: JP.ED 19:01
DX: R25.9 Unspecified abnormal involuntary movements (principal); F10.10 Alcohol abuse, uncomplicated; E11.9 Type 2 diabetes mellitus without complications; E66.9 Obesity, unspecified; F17.290 Nicotine dependence, other tobacco product, uncomplicated; Z88.6 Allergy status to analgesic agent; Z88.8 Allergy status to other drugs, medicaments and biological substances; Z79.4 Long term (current) use of insulin; Z68.36 Body mass index [BMI] 36.0-36.9, adult
CPT/HCPCS: 36415; 70450; 80053; 80305; 80307; 81025; 85025; 96365; 96366; 96375; 99284; J2060; J3411; J3475; J7121; J3490

== ENCOUNTER 2020-03-10 16:30 | Emergency (ER) | payer MEDICAID ==
[2020-03-10 16:49] VITALS: BP 154/90; PULSE 89
--- NOTE | 2020-03-10 17:28 | EDM.PDOCBH ---
ED HPI GENERAL MEDICAL PROBLEM - General Chief Complaint: Drug or Alcohol Abuse Stated Complaint: MEDICAL Time Seen by Provider: 03/10/20 17:10 Source of Information: Reports: Patient History Limitations: Reports: No Limitations - History of Present Illness INITIAL COMMENTS - FREE TEXT/NARRATIVE: 24-year-old female dropped off by her cousin to be admitted for "detox". She was here last night very sedated, likely post methamphetamine abuse. There was no alcohol in her system last night, she was given a banana bag and offered detox but she left. According to the patient she was told by her primary provider to come back and be admitted. Vitals are stable. Onset: Unknown/Unsure Associated Symptoms: Reports: Confusion, Other (Fatigue, sleepy) - Related Data Allergies Allergy/AdvReac Type Severity Reaction Status Date / Time aspirin Allergy Hives Verified 03/09/20 19:09 Home Meds: Home Meds metFORMIN [Glucophage] 1,000 mg PO BIDMEALS 06/16/15 [History] Gabapentin [Neurontin] 900 mg PO TID 03/13/19 [History] Insulin Glarg,Human.Rec.Analog [Lantus Solostar] 15 unit SQ BID 03/13/19 [History] glipiZIDE [Glucotrol XL] 10 mg PO ACBREAKFAST 03/13/19 [History] Past Medical History HEENT History: Reports: Impaired Vision Other HEENT History: wears glasses Gastrointestinal History: Reports: GERD 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 Psychiatric History: Reports: Addiction, Depression Endocrine/Metabolic History: Reports: Diabetes, Type II, Obesity/BMI 30+ Dermatologic History: Reports: Other (See Below) Other Dermatologic History: boils - Infectious Disease History Infectious Disease History: Reports: MRSA - Past Surgical History 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 Surgical History: Reports: ORIF Social & Family History - Family History Endocrine/Metabolic: Reports: Diabetes, type II - Caffeine Use Caffeine Use: Reports: Coffee - Recreational Drug Use Recreational Drug Use: No ED ROS GENERAL - Review of Systems Review Of Systems: See Below Constitutional: Reports: Malaise. Denies: Fever, Chills Respiratory: Denies: Shortness of Breath Cardiovascular: Denies: Chest Pain GI/Abdominal: Denies: Nausea, Vomiting Neurological: Reports: Seizure (Seizure-like activity over the past 24 hours) ED EXAM, BEHAVIORAL HEALTH - Physical Exam Exam: See Below Exam Limited By: No Limitations General Appearance: Alert, No Apparent Distress, Other (Patient is resting quietly) Head: Atraumatic Respiratory/Chest: No Respiratory Distress Neurological: Alert, Oriented x 3 Psychiatric: Flat Affect Skin Exam: Warm, Dry COURSE, BEHAVIORAL HEALTH COMP - Course Vital Signs: Last Vital Signs Temp 96.7 F L 03/10/20 17:04 Pulse 89 03/10/20 17:04 Resp 20 03/10/20 17:04 BP 154/90 H 03/10/20 17:04 Pulse Ox 95 03/10/20 17:04 Re-Assessment/Re-Exam: Offer the patient detox at [facility] and she refused. Explained she does not need admission to the hospital that she is stable, and she got up and dressed and left AMA without any further advice or work-up. Departure - Departure Time of Disposition: 17:27 Disposition: Against Medical Advice 07 Clinical Impression: Polysubstance abuse - Discharge Information Referrals: Lorena Hartley MD [Primary Care Provider] - Forms: ED Department Discharge Care Plan Goals: Patient left prior to any instructions given, detox was advised but the patient refused, also refused admission to the hospital. Sepsis Event Note (ED) - Evaluation Sepsis Screening Result: No Definite Risk - Focused Exam Vital Signs: Vital Signs Temp Pulse Resp BP Pulse Ox 03/10/20 17:04 96.7 F L 89 20 154/90 H 95 03/10/20 16:46 96.7 F L 89 20 154/90 H 95
== END 2020-03-10 17:27 | disposition left against medical advice (07) ==
LOC: JP.ED 16:30
DX: F19.10 Other psychoactive substance abuse, uncomplicated (principal); E11.9 Type 2 diabetes mellitus without complications; E66.9 Obesity, unspecified; Z68.37 Body mass index [BMI] 37.0-37.9, adult; Z88.6 Allergy status to analgesic agent; Z79.4 Long term (current) use of insulin
CPT/HCPCS: 99283

== ENCOUNTER 2020-04-20 14:15 | Emergency (ER) | payer MEDICAID ==
[2020-04-20 14:32] VITALS: BP 121/70; PULSE 74
--- NOTE | 2020-04-20 15:15 | EDM.PDOCBH ---
ED HPI GENERAL MEDICAL PROBLEM - General Chief Complaint: Drug or Alcohol Abuse Stated Complaint: SUICIDAL Time Seen by Provider: 04/20/20 15:00 Source of Information: Reports: Old Records, Police. Denies: Patient History Limitations: Reports: Uncooperative - History of Present Illness INITIAL COMMENTS - FREE TEXT/NARRATIVE: 24 yo NA female was brought into the ER today for evaluation of suicidal ideation. Has written notes on Facebook describing suicidal ideation. Was observed by family to swerve in front of oncoming traffic with her car. Brought here by local police on a 72 hr hold. Is not cooperative now in the ER. Will not say if she has taken any of her meds today. 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: Other (see below) (none) - Related Data Allergies Allergy/AdvReac Type Severity Reaction Status Date / Time aspirin Allergy Hives Verified 04/20/20 14:29 Home Meds: Home Meds metFORMIN [Glucophage] 1,000 mg PO BIDMEALS 06/16/15 [History] Gabapentin [Neurontin] 900 mg PO TID 03/13/19 [History] Insulin Glarg,Human.Rec.Analog [Lantus Solostar] 15 unit SQ BID 03/13/19 [History] glipiZIDE [Glucotrol XL] 10 mg PO ACBREAKFAST 03/13/19 [History] Past Medical History HEENT History: Reports: Impaired Vision Other HEENT History: wears glasses Gastrointestinal History: Reports: GERD 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 Psychiatric History: Reports: Addiction, Depression Endocrine/Metabolic History: Reports: Diabetes, Type II, Obesity/BMI 30+ Dermatologic History: Reports: Other (See Below) Other Dermatologic History: boils - Infectious Disease History Infectious Disease History: Reports: MRSA - Past Surgical History HEENT Surgical History: Reports: None GI Surgical History: Reports: None Female Surgical History: Reports: Section Endocrine Surgical History: Reports: None 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 Surgical History: Reports: ORIF Other 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 Surgeries/Procedures:: Left arm Dermatological Surgical History: Reports: None Social & Family History - Family History Endocrine/Metabolic: Reports: Diabetes, type II - Tobacco Use Tobacco Use Comment: smoker - Caffeine Use Caffeine Use: Reports: Coffee - Recreational Drug Use Recreational Drug Use: Yes Recreational Drug Type: Reports: Heroin, Methamphetamine Recreational Drug Use Frequency: Patient Refuses To Answer ED ROS GENERAL - Review of Systems Review Of Systems: Unable To Obtain Reason Not Obtained: uncooperative Constitutional: Reports: Other (uncertain) Psychiatric: Reports: Suicidal Ideation (per police report) ED EXAM, BEHAVIORAL HEALTH - Physical Exam Exam: See Below Exam Limited By: No Limitations General Appearance: Alert, WD/WN, No Apparent Distress, Obese Eye Exam: Bilateral Eye: Normal Inspection Ears: Normal External Exam, Normal Canal Nose: Normal Inspection, No Blood Throat/Mouth: Normal Lips, No Airway Compromise Head: Atraumatic, Normocephalic Neck: Normal Inspection Respiratory/Chest: No Respiratory Distress, No Accessory Muscle Use. No: Respiratory Distress, Stridor, Accessory Muscle Use, Retractions, Prolonged Expiration Cardiovascular: Regular Rate, Rhythm, No Edema GI/Abdominal: Soft, Non-Tender Extremities: Normal Inspection, Non-Tender, No Pedal Edema. No: Pedal Edema Neurological: Alert, CN II-XII Intact Psychiatric: Alert, Depressed Mood, Poor Eye Contact, Withdrawn Skin Exam: Warm, Dry, Intact, Normal color, No rash COURSE, BEHAVIORAL HEALTH COMP - Course Vital Signs: Last Vital Signs Temp 36.3 C 04/20/20 14:24 Pulse 74 04/20/20 14:24 Resp 16 04/20/20 14:24 BP 121/70 04/20/20 14:24 Pulse Ox 97 04/20/20 14:24 Orders, Labs, Meds: Laboratory Tests 04/20/20 04/20/20 04/20/20 Range/Units 14:41 14:41 14:41 WBC 10.6 (4.5-11.0) K/uL RBC 5.15 (3.30-5.50) M/uL Hgb 13.5 (12.0-15.0) g/dL Hct 43.2 (36.0-48.0) % MCV 84 (80-98) fL MCH 26 L (27-31) pg MCHC 31 L (32-36) % Plt Count 322 (150-400) K/uL Sodium 143 (140-148) mmol/L Potassium 3.8 (3.6-5.2) mmol/L Chloride 104 (100-108) mmol/L Carbon Dioxide 30 (21-32) mmol/L Anion Gap 9.4 (5.0-14.0) mmol/L BUN 10 (7-18) mg/dL Creatinine 0.7 (0.6-1.0) mg/dL Est Cr Clr Drug Dosing 97.16 mL/min Estimated GFR (MDRD) > 60 (>60) Glucose 175 H (74-106) mg/dL Calcium 9.3 (8.5-10.1) mg/dL TSH, Ultra Sensitive 0.549 (0.358-3.740) uIU/mL Urine Color (YELLOW) Urine Appearance (CLEAR) Urine pH (5.0-8.0) Ur Specific [place] (1.008-1.030) Urine Protein (NEGATIVE) mg/dL Urine Glucose (UA) (NEGATIVE) mg/dL Urine Ketones (NEGATIVE) mg/dL Urine Occult Blood (NEGATIVE) Urine Nitrite (NEGATIVE) Urine Bilirubin (NEGATIVE) Urine Urobilinogen (0.2-1.0) EU/dL Ur Leukocyte Esterase (NEGATIVE) Urine RBC (0-5) Urine WBC (0-5) Ur Epithelial Cells Amorphous Sediment Urine Bacteria Urine Mucus Urine HCG, Qual Salicylates (2.0-20.0) mg/dL Urine Opiates Screen (NEGATIVE) Ur Oxycodone Screen (NEGATIVE) Urine Methadone Screen (NEGATIVE) Ur Propoxyphene Screen (NEGATIVE) Acetaminophen 0.0 L (10.0-30.0) ug/mL Ur Barbiturates Screen (NEGATIVE) Ur Tricyclics Screen (NEGATIVE) Ur Phencyclidine Scrn (NEGATIVE) Ur Amphetamine Screen (NEGATIVE) U Methamphetamines Scrn (NEGATIVE) Urine MDMA Screen (NEGATIVE) U Benzodiazepines Scrn (NEGATIVE) U Cocaine Metab Screen (NEGATIVE) U Marijuana (THC) Screen (NEGATIVE) Ethyl Alcohol mg/dL SARS CoV-2 RNA Rapid MAGGIE 04/20/20 04/20/20 04/20/20 Range/Units 14:41 14:41 14:45 WBC (4.5-11.0) K/uL RBC (3.30-5.50) M/uL Hgb (12.0-15.0) g/dL Hct (36.0-48.0) % MCV (80-98) fL MCH (27-31) pg MCHC (32-36) % Plt Count (150-400) K/uL Sodium (140-148) mmol/L Potassium (3.6-5.2) mmol/L Chloride (100-108) mmol/L Carbon Dioxide (21-32) mmol/L Anion Gap (5.0-14.0) mmol/L BUN (7-18) mg/dL Creatinine (0.6-1.0) mg/dL Est Cr Clr Drug Dosing mL/min Estimated GFR (MDRD) (>60) Glucose (74-106) mg/dL Calcium (8.5-10.1) mg/dL TSH, Ultra Sensitive (0.358-3.740) uIU/mL Urine Color Yellow (YELLOW) Urine Appearance Clear (CLEAR) Urine pH 6.5 (5.0-8.0) Ur Specific [place] 1.020 (1.008-1.030) Urine Protein Negative (NEGATIVE) mg/dL Urine Glucose (UA) 500 H (NEGATIVE) mg/dL Urine Ketones Negative (NEGATIVE) mg/dL Urine Occult Blood Negative (NEGATIVE) Urine Nitrite Negative (NEGATIVE) Urine Bilirubin Negative (NEGATIVE) Urine Urobilinogen 0.2 (0.2-1.0) EU/dL Ur Leukocyte Esterase Trace H (NEGATIVE) Urine RBC 0-5 (0-5) Urine WBC 5-10 H (0-5) Ur Epithelial Cells Few Amorphous Sediment Not seen Urine Bacteria Few Urine Mucus Not seen Urine HCG, Qual Salicylates 1.0 L (2.0-20.0) mg/dL Urine Opiates Screen (NEGATIVE) Ur Oxycodone Screen (NEGATIVE) Urine Methadone Screen (NEGATIVE) Ur Propoxyphene Screen (NEGATIVE) Acetaminophen (10.0-30.0) ug/mL Ur Barbiturates Screen (NEGATIVE) Ur Tricyclics Screen (NEGATIVE) Ur Phencyclidine Scrn (NEGATIVE) Ur Amphetamine Screen (NEGATIVE) U Methamphetamines Scrn (NEGATIVE) Urine MDMA Screen (NEGATIVE) U Benzodiazepines Scrn (NEGATIVE) U Cocaine Metab Screen (NEGATIVE) U Marijuana (THC) Screen (NEGATIVE) Ethyl Alcohol 71 mg/dL SARS CoV-2 RNA Rapid MAGGIE 04/20/20 04/20/20 04/20/20 Range/Units 14:45 14:45 16:25 WBC (4.5-11.0) K/uL RBC (3.30-5.50) M/uL Hgb (12.0-15.0) g/dL Hct (36.0-48.0) % MCV (80-98) fL MCH (27-31) pg MCHC (32-36) % Plt Count (150-400) K/uL Sodium (140-148) mmol/L Potassium (3.6-5.2) mmol/L Chloride (100-108) mmol/L Carbon Dioxide (21-32) mmol/L Anion Gap (5.0-14.0) mmol/L BUN (7-18) mg/dL Creatinine (0.6-1.0) mg/dL Est Cr Clr Drug Dosing mL/min Estimated GFR (MDRD) (>60) Glucose (74-106) mg/dL Calcium (8.5-10.1) mg/dL TSH, Ultra Sensitive (0.358-3.740) uIU/mL Urine Color (YELLOW) Urine Appearance (CLEAR) Urine pH (5.0-8.0) Ur Specific [place] (1.008-1.030) Urine Protein (NEGATIVE) mg/dL Urine Glucose (UA) (NEGATIVE) mg/dL Urine Ketones (NEGATIVE) mg/dL Urine Occult Blood (NEGATIVE) Urine Nitrite (NEGATIVE) Urine Bilirubin (NEGATIVE) Urine Urobilinogen (0.2-1.0) EU/dL Ur Leukocyte Esterase (NEGATIVE) Urine RBC (0-5) Urine WBC (0-5) Ur Epithelial Cells Amorphous Sediment Urine Bacteria Urine Mucus Urine HCG, Qual Negative Salicylates (2.0-20.0) mg/dL Urine Opiates Screen Presumptive positive H (NEGATIVE) Ur Oxycodone Screen Negative (NEGATIVE) Urine Methadone Screen Negative (NEGATIVE) Ur Propoxyphene Screen Negative (NEGATIVE) Acetaminophen (10.0-30.0) ug/mL Ur Barbiturates Screen Negative (NEGATIVE) Ur Tricyclics Screen Negative (NEGATIVE) Ur Phencyclidine Scrn Negative (NEGATIVE) Ur Amphetamine Screen Presumptive positive H (NEGATIVE) U Methamphetamines Scrn Presumptive positive H (NEGATIVE) Urine MDMA Screen Negative (NEGATIVE) U Benzodiazepines Scrn Negative (NEGATIVE) U Cocaine Metab Screen Negative (NEGATIVE) U Marijuana (THC) Screen Negative (NEGATIVE) Ethyl Alcohol mg/dL SARS CoV-2 RNA Rapid MAGGIE Negative Departure - Departure Time of Disposition: 18:15 Disposition: DC/Tfer to Psych Hosp/Unit 65 Condition: Fair Clinical Impression: Suicidal ideation, Abuse, drug or alcohol Type 2 diabetes mellitus Qualifiers: Diabetes mellitus custodial insulin use: with custodial use Diabetes mellitus complication status: with hyperglycemia Qualified Code(s): E11.65 - Type 2 diabetes mellitus with hyperglycemia - Discharge Information Referrals: PCP,None [Primary Care Provider] - Forms: ED Department Discharge Sepsis Event Note (ED) - Evaluation Sepsis Screening Result: No Definite Risk
== END 2020-04-20 19:36 ==
LOC: JP.ED 14:15
DX: R45.851 Suicidal ideations (principal); E11.65 Type 2 diabetes mellitus with hyperglycemia; F17.200 Nicotine dependence, unspecified, uncomplicated; E66.9 Obesity, unspecified; Z68.36 Body mass index [BMI] 36.0-36.9, adult; Z20.828 Contact with and (suspected) exposure to other viral communicable diseases; Z79.4 Long term (current) use of insulin; Z88.8 Allergy status to other drugs, medicaments and biological substances
CPT/HCPCS: 36415; 80048; 80305-QW; 80307; 81001; 81025; 84443; 85027; 99285; U0002

== ENCOUNTER 2020-07-02 13:21 | Emergency (ER) | payer MEDICAID ==
[2020-07-02 14:01] VITALS: BP 143/78; PULSE 80
[2020-07-02] MEDS ORDERED: Gabapentin 300 MG Cap PO ONE (15:30)
[2020-07-02] MEDS ORDERED: Ketorolac 30 MG/ML SDV IM ONE (15:30)
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
== END 2020-07-02 16:55 | disposition home or self-care (01) ==
LOC: JP.ED 13:21
DX: T33.822A Superficial frostbite of left foot, initial encounter (principal); T33.821A Superficial frostbite of right foot, initial encounter; E11.65 Type 2 diabetes mellitus with hyperglycemia; E11.42 Type 2 diabetes mellitus with diabetic polyneuropathy; E66.9 Obesity, unspecified; Z68.38 Body mass index [BMI] 38.0-38.9, adult; Z72.0 Tobacco use; Z88.8 Allergy status to other drugs, medicaments and biological substances; Z79.4 Long term (current) use of insulin; X31.XXXA Exposure to excessive natural cold, initial encounter
CPT/HCPCS: 82962; 96372; 99283; 99284; A9270-GY; J1885

== ENCOUNTER 2020-12-18 02:41 | Emergency (ER) | payer MEDICAID ==
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
[2020-12-18 05:59] VITALS: BP 96/52; PULSE 96
== END 2020-12-18 09:16 | disposition home or self-care (01) ==
LOC: JP.ED 02:41
DX: F10.120 Alcohol abuse with intoxication, uncomplicated (principal); E11.65 Type 2 diabetes mellitus with hyperglycemia; F15.90 Other stimulant use, unspecified, uncomplicated; E66.9 Obesity, unspecified; Z68.38 Body mass index [BMI] 38.0-38.9, adult; Z79.4 Long term (current) use of insulin; Z79.899 Other long term (current) drug therapy; Z88.8 Allergy status to other drugs, medicaments and biological substances
CPT/HCPCS: 36415; 80053; 80305-QW; 80307; 81003; 82009; 85025; 99285

== ENCOUNTER 2021-06-05 16:30 | Emergency (ER) | payer MEDICAID ==
[2021-06-05 16:58] VITALS: BP 113/64; PULSE 62
== END 2021-06-05 19:17 | disposition home or self-care (01) ==
LOC: JP.ED 16:30
DX: E11.65 Type 2 diabetes mellitus with hyperglycemia (principal); E11.42 Type 2 diabetes mellitus with diabetic polyneuropathy; R26.9 Unspecified abnormalities of gait and mobility; E66.9 Obesity, unspecified; Z68.39 Body mass index [BMI] 39.0-39.9, adult; Z88.8 Allergy status to other drugs, medicaments and biological substances; Z79.4 Long term (current) use of insulin
CPT/HCPCS: 73610-26-RT; 73610-RT; 99284-25; 99285